=== PATIENT | male | born 1985 | race Caucasian/White ===

== ENCOUNTER 2017-01-22 00:41 | Emergency (ER) | payer MEDICARE ==
[2017-01-22 01:48] LABS: BASOPHILS 0.5 % (0-2); EOSINOPHILS 2.4 % (0-7); HEMATOCRIT 44.5 % (42.0-54.0); HEMOGLOBIN 15.5 g/dL (13.5-17.5); IMMATURE GRANULOCYTES 0.5 % (0-5); LYMPHOCYTES 26.6 % (15-50); MCH 29.4 pg (26.0-34.0); MCHC 34.8 g/dL (31.0-37.0); MCV 84.4 fL (80.0-100.0); MEAN PLATELET VOLUME 9.9 fL (7.4-10.4); PLATELET COUNT 257 10x3/uL (130-400); RBC 5.27 10x6/uL (4.20-6.10); RDW 13.1 % (11.5-14.5); WBC 8.4 10x3/uL (4.8-10.8)
[2017-01-22 02:18] LABS: ALBUMIN 3.6 g/dL (3.4-5.0); ALKALINE PHOSPHATASE 64 U/L (46-116); ALT (SGPT) 25 U/L (10-68); CALC OSMOLALITY 282 mosm/kg (275-300); CARBON DIOXIDE 24.3 mmol/L (21.0-32.0); CHLORIDE - SERUM 106 mmol/L (98-107); GLUCOSE 101 mg/dL (74-106); LIPASE 86 U/L (73-393); POTASSIUM - SERUM 3.5 mmol/L (3.5-5.1); PROTEIN - SERUM 7.3 g/dL (6.4-8.2); SODIUM 141 mmol/L (136-145); UREA NITROGEN 18 mg/dL (7-18); eGFR NON AFRICAN AMERICAN > 90 mL/min (90-120)
== END 2017-01-22 04:30 | disposition home or self-care (01) ==
LOC: D.ER 00:41
PROVIDERS: Emergency Medicine
DX: S50.312A Abrasion of left elbow, initial encounter (principal); V29.9XXA Motorcycle rider (driver) (passenger) injured in unspecified traffic accident, initial encounter; Y93.89 Activity, other specified; Y92.89 Other specified places as the place of occurrence of the external cause; R10.9 Unspecified abdominal pain; F17.200 Nicotine dependence, unspecified, uncomplicated

== ENCOUNTER 2017-03-22 23:36 | Emergency (ER) | payer MEDICARE | END 2017-03-23 00:24 | disposition home or self-care (01) | LOC: D.ER 23:36 | DX: M79.671 Pain in right foot (principal) ==

== ENCOUNTER 2017-08-12 21:48 | Emergency (ER) | payer MEDICARE | END 2017-08-12 23:11 | disposition home or self-care (01) | LOC: D.ER 21:48 | DX: M25.562 Pain in left knee (principal) ==

== ENCOUNTER 2019-07-13 10:27 | Emergency (ER) | payer MEDICARE ==
[~2019-07-13] VITALS: Ht 177.8 cm; Wt 86.4 kg
[2019-07-13 10:31] VITALS: Ht 177.8 cm; Wt 86.4 kg
[2019-07-13] MEDS ORDERED: PREDNISONE10 MG PO (11:12)
[2019-07-13] MEDS ORDERED: NAPROSYN500 MG PO (11:12)
[2019-07-17 09:11] VITALS: BP 160/95
== END 2019-07-13 11:45 ==
LOC: D.ER 10:27
DX: S93.601A Unspecified sprain of right foot, initial encounter (principal); X58.XXXA Exposure to other specified factors, initial encounter; I10 Essential (primary) hypertension